=== PATIENT | female | born 1945 | race Caucasian/White ===

== ENCOUNTER → 2020-06-25 | Outpatient (REF) | payer MEDICARE, OTHER ==
[~2020-06-25] MED LIST: ASPI81TA90 PO; CALC600T7 PO; CARA1TAB2 PO; CELE1CAP4 PO; FIBER CAP OR; FISHCAP5 PO; IBUP600T26 PO; MAGN250T PO; MIRALAX OR; MULTTAB4 PO; PREV30CA6 PO; VICO5TAB PO; VITA-130 PO
[2020-06-25 18:09] LABS: CREATININE, URINE 97.2 MG/DL; MALB URINE SIEMENS 6.9 MG/L
== END ==
LOC: M LAB REF 17:05
PROVIDERS: ATTEND Nurse Practitioner Family
DX: E11.9 Type 2 diabetes mellitus without complications (principal)

== ENCOUNTER → 2020-07-10 | Outpatient (CLI) | payer MEDICARE, OTHER ==
--- NOTE | 2020-07-10 12:27 | REP ---
INDICATION: TRIGGER THUMB. COMPARISON: None. TECHNIQUE: AP, lateral, bilateral oblique views of the right hand along with lateral views of the 1st and 2nd digits FINDINGS: Advanced arthritic changes at the 1st carpometacarpal joint includes periarticular sclerosis/irregularity with osteophytosis, erosive changes/remodeling, and chronic subluxation. Early advanced osteoarthritic degenerative changes including periarticular sclerosis, joint space narrowing, osteophytosis also identified at the 1st metacarpophalangeal joint, 2nd metacarpophalangeal joint, and the interphalangeal joints (primarily 1st through 3rd DIP joint.) No evidence for acute fracture or dislocation. IMPRESSION: Advanced osteoarthritic degenerative changes. <Electronically signed by Florencio Gonzalez > 07/10/20 1346
== END ==
LOC: M SOG 10:48
PROVIDERS: ATTEND Orthopaedic Surgery Sports Medicine
DX: M65.311 Trigger thumb, right thumb (principal); M19.041 Primary osteoarthritis, right hand